=== PATIENT | male | born 1975 | race Caucasian/White ===

== ENCOUNTER 2018-05-09 06:27 | Emergency (ER) | payer BC ==
[~2018-05-09] VITALS: Ht 182.9 cm; Wt 95.3 kg
--- NOTE | 2018-05-09 06:43 | NUR ---
Dr. Vanegas at bedside for MSE.
[2018-05-09] MEDS ORDERED: HYDROMORPHONE 1 MG/1 ML DISP.SYRIN IV ONE ×2 (06:45→08:00)
[2018-05-09] MEDS ORDERED: IV NORMAL SALINE 1000 ML BAG IV ONE (06:45)
[2018-05-09] MEDS ORDERED: ONDANSETRON 4 MG/2 ML VIAL IV ONE ×2 (06:45→08:00)
[2018-05-09] MEDS ORDERED: HYDROMORPHONE 2 MG/1 ML DISP.SYRIN ONE ×2 (06:59→08:32)
[2018-05-09] MEDS ORDERED: ONDANSETRON 4 MG/2 ML VIAL ONE ×2 (07:00→08:32)
[2018-05-09 07:08] LABS: BASOPHILS # (AUTO) 0.1 K/uL (0.0-8.0); EOSINOPHILS # (AUTO) 0.3 K/uL (0.0-0.7); EOSINOPHILS % (AUTO) 2.7 % (0.0-7.0); HEMATOCRIT 44.6 % (36.7-47.1); HEMOGLOBIN 15.3 g/dL (12.5-16.3); MEAN CORPUSCULAR HGB CONC 34 g/dL (32.5-36.3); MEAN CORPUSCULAR VOLUME 87.2 fL (73.0-96.2); MONOCYTES # (AUTO) 0.9 K/uL (2.0-10.0); MONOCYTES % (AUTO) 7.9 % (0.0-11.0); NEUTROPHILS # (AUTO) 6.8 K/uL (1.8-8.9); NEUTROPHILS % (AUTO) 61.4 % (38.5-71.5); PLATELET COUNT (AUTO) 235 K/uL (152-348); RED BLOOD CELL COUNT(AUTO) 5.11 MIL/uL (4.06-5.63)
--- NOTE | 2018-05-09 07:10 | NUR ---
Pt out of ER for CT.
--- NOTE | 2018-05-09 07:17 | NUR ---
Passed report to Christy GOLDSTEIN.
[2018-05-09 07:23] LABS: CREATININE 1.2 mg/dL (0.6-1.3); POTASSIUM 3.5 mmol/L (3.5-5.1)
[2018-05-09 07:28] LABS: BILIRUBIN,DIRECT 0.2 mg/dL (0.0-0.2); BILIRUBIN,TOTAL 0.8 mg/dL (0.2-1.0); TOTAL PROTEIN, SERUM 7.6 g/dL (6.4-8.2)
[2018-05-09 07:32] LABS: *BILIRUBIN,URIN NEGATIVE (NEGATIVE); *BLOOD, URINE 3+ (NEGATIVE); *CLARITY,URINE CLOUDY (CLEAR); *KETONES,URINE NEGATIVE (NEGATIVE); *PROTEIN,URINE TRACE (NEGATIVE); *UROBILINOGEN,URINE 0.2 E.U./dl (NORMAL); LEUKOCYTE ESTERASE ,URINE NEGATIVE (NEGATIVE); NITRITE, URINE NEGATIVE (NEGATIVE); UGLUCOSE NEGATIVE (NEGATIVE)
[2018-05-09 07:54] LABS: *COLOR,URINE YELLOW (YELLOW)
[2018-05-09 07:55] LABS: BACTERIA,URINE NONE SEEN /HPF (NONE SEEN); MUCUS,URINE MODERATE /LPF (0-FEW); RBC,URINE TNTC /HPF (0-3); SQUAMOUS EPITHELIAL CELL,UR FEW /HPF (NONE SEEN)
[2018-05-09] MEDS ORDERED: KETOROLAC TROMETHAMINE 15 MG INJ IV ONE (08:00)
--- NOTE | 2018-05-09 08:24 | NUR ---
Patient is AOx4, c/o severe right flank pains radiating to right lower quadrant, + nausea & patient had one small emesis, respiration:easy, another dose of IV pain medicines were given as ordered, monitored closely. Comfort and safety measures maintained.
[2018-05-09] MEDS ORDERED: KETOROLAC TROMETHAMINE 30 MG INJ ONE (08:32)
--- NOTE | 2018-05-09 08:33 | NUR ---
Patient is for discharge when patient feels much better. Patient is resting comfortably in bed with eyes closed.
--- NOTE | 2018-05-09 08:51 | NUR ---
IV removed. Catheter intact and site benign. Pressure and 4x4 gauze applied to site. No bleeding noted. Patient discharged to home in stable conditon. Written and verbal after care instructions given to patient. Patient verbalizes understanding of instructions. 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
== END 2018-05-09 08:54 | disposition home or self-care (01) ==
LOC: ER 06:32
DX: N20.0 Calculus of kidney (principal)
CPT/HCPCS: 36415; 74176; 80048; 80076; 81001; 83690; 85025; 93005; 96361; 96374; 96375; 96376; 99285; A4663; J1170 ×2; J1885; J2405 ×2; J7030